=== PATIENT | male | born 1980 | race African-American/Black ===

== ENCOUNTER 2019-03-05 19:50 | Emergency (ER) | payer OTHER, SELFPAY ==
[2019-03-05 19:54] VITALS: BP 148/91; PULSE 84; RESP 18; TEMP 37.9; O2SAT 97; BMI 34.7
[2019-03-05 20:15] LABS: Bacteria Urine None Seen
[2019-03-05 20:22] LABS: Appearance Urine UA CLEAR; Bilirubin Urine UA NEGATIVE (NEGATIVE); Color Urine UA YELLOW; Glucose Urine UA NEGATIVE (Negative); Ketones Urine UA NEGATIVE (NEGATIVE); Leukocyte Esterase Urine UA 1+ (NEGATIVE); Nitrite Urine UA NEGATIVE (Negative); Occult Blood Urine UA 3+ (Negative); Protein Urine UA TRACE (Negative); Urobilinogen Urine UA 0.2 E.U./dL (0.2); pH Urine UA 6.5 (4.5-8.0)
[2019-03-05 20:25] LABS: Culture Indicated Urine Specimen Cultured; RBC Urine 30-100/HPF (0-5/HPF); WBC Urine 5-10/HPF (0-5/HPF)
[2019-03-05 20:53] LABS: Add Manual Diff / Slide Review NO; Basophils Absolute Auto 100 /uL (0-100); Basophils Percent Auto 0.4 % (0-2); Eosinophils Absolute Auto 0 /uL (0-450); Eosinophils Percent Auto 0.2 % (2-4); Hematocrit 48.9 % (41-53); Hemoglobin 16.1 g/dL (13.5-17.5); Lymphocytes Absolute Auto 3000 /uL (1100-4500); Lymphocytes Percent Auto 15.5 % (25-40); Mean Corpuscular HGB Conc 32.9 % (30-36); Mean Corpuscular Hemoglobin 29.5 PG (26-34); Mean Corpuscular Volume 89.8 fL (80-100); Monocytes Absolute Auto 1300 /uL (0-900); Monocytes Percent Auto 6.8 % (3-14); Neutrophils Absolute Auto 14800 /uL (1500-7000); Neutrophils Percent Auto 77.1 % (50-75); Platelet Count 226 X10^3/uL (150-400); Red Blood Cell Count 5.44 X10^6/uL (4.5-5.9); Red Cell Distribution Width 14.2 % (11.6-14.8); White Blood Cell Count 19.2 X10^3/uL (4.5-11.0)
--- NOTE | 2019-03-05 20:56 | PC.NURSE ---
Pt reports left flank pain with pain at the tip of his penis when urinating. He states he has urgency and frequency problems. Denies needs at this time. Urine sample obtained, iv placed, labs pending.
[2019-03-05 21:01] LABS: Alanine Aminotransferase 29 IU/L (21-72); Albumin 4.8 g/dL (3.5-5.0); Albumin Globulin Ratio 1.3 (1.0-2.8); Alkaline Phosphatase 54 U/L (38-126); Aspartate Aminotransferase 23 IU/L (17-59); Bilirubin Total 0.7 mg/dL (0.2-1.3); Blood Urea Nitrogen 11 mg/dL (9-20); Calcium 9.8 mg/dL (8.4-10.2); Carbon Dioxide 27 mmol/L (22-32); Chloride 99 mmol/L (98-107); Estimated Glomerular Filt Rate > 60.0 mL/min (>60); Globulin 3.7 g/dL (1.7-4.1); Glucose 96 mg/dL (70-100); HEMOLYSIS < 15 (0-50); Potassium 3.5 mmol/L (3.4-5.1); Sodium 137 mmol/L (137-145); Total Protein 8.5 g/dL (6.3-8.2)
[2019-03-05] MEDS: SODIUM CHLORIDE 0.9% 1,000 ML 1000 ML IV (21:03)
[2019-03-05 21:21] LABS: Procalcitonin < 0.05 ng/mL (<0.5)
[2019-03-05] MEDS: levoFLOXacin 750 MG/150 ML PIGGYBACK 100 MG IV (21:49)
[2019-03-05 22:08] VITALS: BP 144/80; PULSE 84; RESP 18; O2SAT 96
--- NOTE | 2019-03-05 22:33 | ED.MALEGU ---
HPI - Male Genitourinary <LILY Dejesus - Last Filed: 03/05/19 22:51> General Chief complaint: Urogenital-Male Stated complaint: THINKS KIDNEY INFECTION Time Seen by Provider: 03/05/19 20:40 Source: patient and family Mode of arrival: ambulatory Limitations: no limitations History of Present Illness HPI Narrative: The patient is a 38-year-old male nonsmoker who denies medical history presents with a chief complaint of flank pain dysuria urgency and frequency. He started noting dysuria 3 days ago, which progressed to right-sided flank pain and started developing fevers today. He denies any possibility of sexually transmitted infection. He denies any nausea vomiting or diarrhea. He is concerned about a urinary tract infection. Related Data Home Medications Medication Instructions Recorded Confirmed Naproxen Sodium (Naprosyn) 0 mg PO * DOSE/FREQUENCY #0 04/08/08 [meloxicam] #0 03/16/13 prednisone DAILY #0 03/16/13 Previous Rx's Medication Instructions Recorded levofloxacin [Levaquin] 750 mg PO DAILY #6 tab 03/05/19 Allergies Allergy/AdvReac Type Severity Reaction Status Date / Time No Known Drug Allergies Allergy Verified 03/05/19 19:54 Review of Systems <LILY Dejesus - Last Filed: 03/05/19 22:51> Review of Systems GENERAL: Denies chills, fatigue, malaise, fever, sweats. HEENT: Denies sinus pain, ear pain, sore throat, difficulty swallowing, dizziness. RESPIRATORY: Denies dyspnea, cough, wheezing, hemoptysis, sputum. CARDIOVASCULAR: Denies chest pain, palpitations, orthopnea, edema, GASTROINTESTINAL: Denies nausea, vomiting, abdominal pain, diarrhea, constipation, melena. : See HPI MUSCULOSKELETAL: denies weakness, joint pain, or bony pain SKIN: Denies rash, skin lesions, or other NEUROLOGIC: Denies weakness, headache, numbness, change in speech, confusion, seizures, incoordination. PSYCHIATRIC: No concerning psychosocial issues. 12 point review of systems is negative except for those stated above PFSH <LILY Dejesus - Last Filed: 03/05/19 22:51> Social History Smoking Status: Never smoker Social History Smoking Status: Never smoker Exam <LILY Dejesus - Last Filed: 03/05/19 22:51> Narrative Exam Narrative: GENERAL: This is a well-nourished, well-developed patient, appears uncomfortable HEAD: Atraumatic. Normocephalic. No temporal or scalp tenderness. EYES: Pupils equal round and reactive. Extraocular motions intact. No scleral icterus. No injection or drainage. ENT: Nose without bleeding, purulent drainage or septal hematoma. Throat without erythema, tonsillar hypertrophy or exudate. Uvula midline. Airway patent. NECK: Trachea midline. No JVD or lymphadenopathy. Supple, nontender, no meningeal signs. CARDIOVASCULAR: Regular rate and rhythm without murmurs, gallops, or rubs. RESPIRATORY: Clear to auscultation. Breath sounds equal bilaterally. No wheezes, rales, or rhonchi. GASTROINTESTINAL: Abdomen soft, non-tender, nondistended. No hepato-splenomegaly, or palpable masses. No guarding. EXTREMITIES: No clubbing, cyanosis, or edema. No joint tenderness, effusion, or edema noted. BACK: Nontender without deformity or crepitance. CVA tenderness right side NEURO: AOx3. SKIN: No rash or erythema. Initial Vital Signs Initial Vital Signs: Vital Signs Temperature 100.2 F H 03/05/19 19:54 Pulse Rate 84 03/05/19 19:54 Respiratory Rate 18 03/05/19 19:54 Blood Pressure 148/91 H 03/05/19 19:54 Pulse Oximetry 97 03/05/19 19:54 <Gary Hernandez DO - Last Filed: 03/06/19 01:10> Initial Vital Signs Initial Vital Signs: Vital Signs Temperature 100.2 F H 03/05/19 19:54 Pulse Rate 84 03/05/19 19:54 Respiratory Rate 18 03/05/19 19:54 Blood Pressure 148/91 H 03/05/19 19:54 Pulse Oximetry 97 03/05/19 19:54 Course <LILY Dejesus - Last Filed: 03/05/19 22:51> Orders Ordered: ED Orders 03/05/19 20:03 Urinalysis and Microscopic Stat Urine Culture Stat 03/05/19 20:40 Complete Blood Count AUTO DIFF Stat Comprehensive Metabolic Panel Stat Procalcitonin Stat Discontinued Medications Sodium Chloride (Normal Saline 0.9%) 1,000 mls @ 1,000 mls/hr IV BOLUS ONE Stop: 03/05/19 21:37 Last Infusion: 03/05/19 22:11 Dose: 0 mls/hr Admin: 03/05/19 21:03 Dose: 1,000 mls/hr Levofloxacin (Levaquin) 750 mg in 150 mls @ 100 mls/hr IV NOW ONE Stop: 03/05/19 23:11 Last Infusion: 03/05/19 23:35 Dose: 0 mls/hr Admin: 03/05/19 21:49 Dose: 100 mls/hr Vital Signs - 8 hr 03/05/19 19:54 03/05/19 22:08 03/05/19 23:21 Temperature 100.2 F H Pulse Rate 84 84 88 Respiratory Rate 18 18 18 Blood Pressure 148/91 H Blood Pressure [Left Arm] 144/80 H 145/92 H Pulse Oximetry 97 96 98 03/05/19 23:35 Temperature Pulse Rate 85 Respiratory Rate Blood Pressure 160/92 H Blood Pressure [Left Arm] Pulse Oximetry 97 <Gary Hernandez DO - Last Filed: 03/06/19 01:10> Orders Ordered: ED Orders 03/05/19 20:03 Urinalysis and Microscopic Stat Urine Culture Stat 03/05/19 20:40 Complete Blood Count AUTO DIFF Stat Comprehensive Metabolic Panel Stat Procalcitonin Stat Discontinued Medications Sodium Chloride (Normal Saline 0.9%) 1,000 mls @ 1,000 mls/hr IV BOLUS ONE Stop: 03/05/19 21:37 Last Infusion: 03/05/19 22:11 Dose: 0 mls/hr Admin: 03/05/19 21:03 Dose: 1,000 mls/hr Levofloxacin (Levaquin) 750 mg in 150 mls @ 100 mls/hr IV NOW ONE Stop: 03/05/19 23:11 Last Infusion: 03/05/19 23:35 Dose: 0 mls/hr Admin: 03/05/19 21:49 Dose: 100 mls/hr Vital Signs - 8 hr 03/05/19 19:54 03/05/19 22:08 03/05/19 23:21 Temperature 100.2 F H Pulse Rate 84 84 88 Respiratory Rate 18 18 18 Blood Pressure 148/91 H Blood Pressure [Left Arm] 144/80 H 145/92 H Pulse Oximetry 97 96 98 03/05/19 23:35 Temperature Pulse Rate 85 Respiratory Rate Blood Pressure 160/92 H Blood Pressure [Left Arm] Pulse Oximetry 97 MDM - Male Genitourinary <Radha MejiasBECCA neumannP- - Last Filed: 03/05/19 22:51> Lab Data Result diagrams: 03/05/19 20:40 03/05/19 20:40 Lab Results 03/05/19 03/05/19 03/05/19 Range/Units 20:03 20:40 20:40 WBC 19.2 H (4.5-11.0) X10^3/uL RBC 5.44 (4.5-5.9) X10^6/uL Hgb 16.1 (13.5-17.5) g/dL Hct 48.9 (41-53) % MCV 89.8 (80-100) fL MCH 29.5 (26-34) PG MCHC 32.9 (30-36) % RDW 14.2 (11.6-14.8) % Plt Count 226 (150-400) X10^3/uL Neut % (Auto) 77.1 H (50-75) % Lymph % (Auto) 15.5 L (25-40) % [place] % (Auto) 6.8 (3-14) % Eos % (Auto) 0.2 L (2-4) % Baso % (Auto) 0.4 (0-2) % Neut # (Auto) 01795 H (9877-9764) /uL Lymph # (Auto) 3000 (6456-1138) /uL [place] # (Auto) 1300 H (0-900) /uL Eos # (Auto) 0 (0-450) /uL Baso # (Auto) 100 (0-100) /uL Sodium (137-145) mmol/L Potassium (3.4-5.1) mmol/L Chloride (98-107) mmol/L Carbon Dioxide (22-32) mmol/L BUN (9-20) mg/dL Creatinine (0.66-1.25) mg/dL Estimated GFR (>60) mL/min BUN/Creatinine Ratio (6-22) Glucose (70-100) mg/dL Calcium (8.4-10.2) mg/dL Total Bilirubin (0.2-1.3) mg/dL AST (17-59) IU/L ALT (21-72) IU/L Alkaline Phosphatase (38-126) U/L Total Protein (6.3-8.2) g/dL Albumin (3.5-5.0) g/dL Globulin (1.7-4.1) g/dL Albumin/Globulin Ratio (1.0-2.8) Procalcitonin < 0.05 (<0.5) ng/mL Urine Color Yellow Urine Appearance Clear Urine pH 6.5 (4.5-8.0) Ur Specific [place] 1.010 (1.000-1.035) Urine Protein Trace H (Negative) Urine Glucose (UA) Negative (Negative) g/dL Urine Ketones Negative (NEGATIVE) Urine Occult Blood 3+ H (Negative) Urine Nitrate Negative (Negative) Urine Bilirubin Negative (NEGATIVE) Urine Urobilinogen 0.2 (0.2) E.U./dL Ur Leukocyte Esterase 1+ H (NEGATIVE) Urine RBC 30-100/hpf H (0-5/HPF) Urine WBC 5-10/hpf H (0-5/HPF) Urine Bacteria None seen (None) Ur Culture Indicated? Specimen cultured 03/05/19 Range/Units 20:40 WBC (4.5-11.0) X10^3/uL RBC (4.5-5.9) X10^6/uL Hgb (13.5-17.5) g/dL Hct (41-53) % MCV (80-100) fL MCH (26-34) PG MCHC (30-36) % RDW (11.6-14.8) % Plt Count (150-400) X10^3/uL Neut % (Auto) (50-75) % Lymph % (Auto) (25-40) % [place] % (Auto) (3-14) % Eos % (Auto) (2-4) % Baso % (Auto) (0-2) % Neut # (Auto) (6675-3277) /uL Lymph # (Auto) (6336-1419) /uL [place] # (Auto) (0-900) /uL Eos # (Auto) (0-450) /uL Baso # (Auto) (0-100) /uL Sodium 137 (137-145) mmol/L Potassium 3.5 (3.4-5.1) mmol/L Chloride 99 (98-107) mmol/L Carbon Dioxide 27 (22-32) mmol/L BUN 11 (9-20) mg/dL Creatinine 1.10 (0.66-1.25) mg/dL Estimated GFR > 60.0 (>60) mL/min BUN/Creatinine Ratio 10.0 (6-22) Glucose 96 (70-100) mg/dL Calcium 9.8 (8.4-10.2) mg/dL Total Bilirubin 0.7 (0.2-1.3) mg/dL AST 23 (17-59) IU/L ALT 29 (21-72) IU/L Alkaline Phosphatase 54 (38-126) U/L Total Protein 8.5 H (6.3-8.2) g/dL Albumin 4.8 (3.5-5.0) g/dL Globulin 3.7 (1.7-4.1) g/dL Albumin/Globulin Ratio 1.3 (1.0-2.8) Procalcitonin (<0.5) ng/mL Urine Color Urine Appearance Urine pH (4.5-8.0) Ur Specific [place] (1.000-1.035) Urine Protein (Negative) Urine Glucose (UA) (Negative) g/dL Urine Ketones (NEGATIVE) Urine Occult Blood (Negative) Urine Nitrate (Negative) Urine Bilirubin (NEGATIVE) Urine Urobilinogen (0.2) E.U./dL Ur Leukocyte Esterase (NEGATIVE) Urine RBC (0-5/HPF) Urine WBC (0-5/HPF) Urine Bacteria (None) Ur Culture Indicated? Urine Dip Bedside Urine Bilirubin - Negative Bedside Urine Ketone - Negative Urine Specific [place] 1.015 Bedside Urine Occult Blood +++ Bedside Urine pH 6.0 Bedside Urine Protein + 30 Bedside Urine Urobilinogen +/- 1mg Bedside Urine Nitrite + Positive Bedside Urine Leukocytes ++ 125 Esterase MDM Narrative Medical decision making narrative: The patient is a 38-year-old male who presents with dysuria, flank pain and fever. His pain is continuous , his white blood cell count is elevated and his urine is nitrite positive. he states his pain is a consistent low pain with no associated nausea or vomiting. he is not presenting like a kidney stone, though we discussed imaging and elected to defer at this point time. Given his flank pain, elevated white blood cell count low grade temperature, and treat him like pyelonephritis. His temperature did decrease after single dose of Tylenol. We did elect to give him IV Levaquin in the emergency department prior to discharge. I discussed at length the risk of tendon issues. And that he would be discharged on p.o. antibiotics. Encouraged him to follow up with his primary care provider. Discussed return precautions of fevers, worsening, vomiting and lack of improvement. Patient had no questions or concerns upon discharge. <Gary Hernandez, - Last Filed: 03/06/19 01:10> Lab Data Lab Results 03/05/19 03/05/19 03/05/19 Range/Units 20:03 20:40 20:40 WBC 19.2 H (4.5-11.0) X10^3/uL RBC 5.44 (4.5-5.9) X10^6/uL Hgb 16.1 (13.5-17.5) g/dL Hct 48.9 (41-53) % MCV 89.8 (80-100) fL MCH 29.5 (26-34) PG MCHC 32.9 (30-36) % RDW 14.2 (11.6-14.8) % Plt Count 226 (150-400) X10^3/uL Neut % (Auto) 77.1 H (50-75) % Lymph % (Auto) 15.5 L (25-40) % [place] % (Auto) 6.8 (3-14) % Eos % (Auto) 0.2 L (2-4) % Baso % (Auto) 0.4 (0-2) % Neut # (Auto) 41573 H (4080-6811) /uL Lymph # (Auto) 3000 (2806-0369) /uL [place] # (Auto) 1300 H (0-900) /uL Eos # (Auto) 0 (0-450) /uL Baso # (Auto) 100 (0-100) /uL Sodium (137-145) mmol/L Potassium (3.4-5.1) mmol/L Chloride (98-107) mmol/L Carbon Dioxide (22-32) mmol/L BUN (9-20) mg/dL Creatinine (0.66-1.25) mg/dL Estimated GFR (>60) mL/min BUN/Creatinine Ratio (6-22) Glucose (70-100) mg/dL Calcium (8.4-10.2) mg/dL Total Bilirubin (0.2-1.3) mg/dL AST (17-59) IU/L ALT (21-72) IU/L Alkaline Phosphatase (38-126) U/L Total Protein (6.3-8.2) g/dL Albumin (3.5-5.0) g/dL Globulin (1.7-4.1) g/dL Albumin/Globulin Ratio (1.0-2.8) Procalcitonin < 0.05 (<0.5) ng/mL Urine Color Yellow Urine Appearance Clear Urine pH 6.5 (4.5-8.0) Ur Specific [place] 1.010 (1.000-1.035) Urine Protein Trace H (Negative) Urine Glucose (UA) Negative (Negative) g/dL Urine Ketones Negative (NEGATIVE) Urine Occult Blood 3+ H (Negative) Urine Nitrate Negative (Negative) Urine Bilirubin Negative (NEGATIVE) Urine Urobilinogen 0.2 (0.2) E.U./dL Ur Leukocyte Esterase 1+ H (NEGATIVE) Urine RBC 30-100/hpf H (0-5/HPF) Urine WBC 5-10/hpf H (0-5/HPF) Urine Bacteria None seen (None) Ur Culture Indicated? Specimen cultured 03/05/19 Range/Units 20:40 WBC (4.5-11.0) X10^3/uL RBC (4.5-5.9) X10^6/uL Hgb (13.5-17.5) g/dL Hct (41-53) % MCV (80-100) fL MCH (26-34) PG MCHC (30-36) % RDW (11.6-14.8) % Plt Count (150-400) X10^3/uL Neut % (Auto) (50-75) % Lymph % (Auto) (25-40) % [place] % (Auto) (3-14) % Eos % (Auto) (2-4) % Baso % (Auto) (0-2) % Neut # (Auto) (5313-6414) /uL Lymph # (Auto) (8259-6453) /uL [place] # (Auto) (0-900) /uL Eos # (Auto) (0-450) /uL Baso # (Auto) (0-100) /uL Sodium 137 (137-145) mmol/L Potassium 3.5 (3.4-5.1) mmol/L Chloride 99 (98-107) mmol/L Carbon Dioxide 27 (22-32) mmol/L BUN 11 (9-20) mg/dL Creatinine 1.10 (0.66-1.25) mg/dL Estimated GFR > 60.0 (>60) mL/min BUN/Creatinine Ratio 10.0 (6-22) Glucose 96 (70-100) mg/dL Calcium 9.8 (8.4-10.2) mg/dL Total Bilirubin 0.7 (0.2-1.3) mg/dL AST 23 (17-59) IU/L ALT 29 (21-72) IU/L Alkaline Phosphatase 54 (38-126) U/L Total Protein 8.5 H (6.3-8.2) g/dL Albumin 4.8 (3.5-5.0) g/dL Globulin 3.7 (1.7-4.1) g/dL Albumin/Globulin Ratio 1.3 (1.0-2.8) Procalcitonin (<0.5) ng/mL Urine Color Urine Appearance Urine pH (4.5-8.0) Ur Specific [place] (1.000-1.035) Urine Protein (Negative) Urine Glucose (UA) (Negative) g/dL Urine Ketones (NEGATIVE) Urine Occult Blood (Negative) Urine Nitrate (Negative) Urine Bilirubin (NEGATIVE) Urine Urobilinogen (0.2) E.U./dL Ur Leukocyte Esterase (NEGATIVE) Urine RBC (0-5/HPF) Urine WBC (0-5/HPF) Urine Bacteria (None) Ur Culture Indicated? Urine Dip Bedside Urine Bilirubin - Negative Bedside Urine Ketone - Negative Urine Specific [place] 1.015 Bedside Urine Occult Blood +++ Bedside Urine pH 6.0 Bedside Urine Protein + 30 Bedside Urine Urobilinogen +/- 1mg Bedside Urine Nitrite + Positive Bedside Urine Leukocytes ++ 125 Esterase Discharge Plan Departure Patient Disposition: Home Clinical Impression: Pyelonephritis Discharge Date/Time: 03/05/19 23:36 Interventions: ED Discharge Assessment Last Done: 03/05/19 23:35 Instructions: DI for Kidney Infection Activity Restrictions/Additional Instructions: I am starting on antibiotics for kidney infection. Please monitor for fever, vomiting and worsening. Please be evaluated if any of these occur. Come back to the emergency department for any acute concerns. Please follow up with primary care provider. We are sending off a urine culture to make sure that this antibiotic works for the infection that you have. Prescriptions: New levofloxacin [Levaquin] 750 mg tablet 750 mg PO DAILY Qty: 6 RF: 0 No Action Naproxen Sodium (Naprosyn) PO * DOSE/FREQUENCY Qty: 0 RF: 0 prednisone 10 MG tablet DAILY Qty: 0 RF: 0 [meloxicam] Qty: 0 RF: 0 Referrals: Isac Mendez MD [Primary Care Provider] - <Gary Hernandez DO - Last Filed: 03/06/19 01:10> Cosign ED Attending Ashley Attestation: I was available for consultation during this patient's emergency department encounter
[2019-03-05 23:21] VITALS: BP 145/92; PULSE 88; RESP 18; O2SAT 98
[2019-03-05 23:35] VITALS: BP 160/92; PULSE 85; O2SAT 97
== END 2019-03-05 23:36 | disposition home or self-care (01) ==
PROVIDERS: Emergency Provider Nurse Practitioner Family; Family Provider Family Medicine; PCP Family Medicine
DX: N12 Tubulo-interstitial nephritis, not specified as acute or chronic (principal)
CPT/HCPCS: 36591; 80053; 81001; 81003; 84145; 85025; 87077; 87086; 87186; 96361; 96365; 96366; 99283; 99284; J1956

== ENCOUNTER → 2025-01-12 08:57 | Outpatient (CLI) | payer OTHER, SELFPAY ==
--- NOTE | 2025-01-12 08:59 | DI.MRI.S_ITS ---
PROCEDURE: MR HEAD/BRAIN WO/W CON INDICATIONS: ANOSMIA TECHNIQUE: Noncontrast axial T1 spin echo, axial T2 fast spin echo, sagittal and axial FLAIR, coronal T2 fast spin echo, axial gradient echo, axial diffusion and ADC through the brain. After the administration of contrast, axial and coronal and sagittal 3D VIBE or T1 spin echo with fat saturation through the brain. COMPARISON: None. FINDINGS: CSF Spaces: Basal cisterns are patent. No extra-axial fluid collections. Ventricles are normal in size and shape. Brain: No intracranial masses or hemorrhage. Ramos/white matter interface is normal. Brainstem appears normal. Diffusion-weighted sequence is unremarkable without evidence of acute infarct. Normal intravascular flow voids are present. Skull and face: Calvarial marrow is normal in signal. Orbits appear normal. Unilateral left intra-ocular lens replacement. Sinuses: Sinuses and mastoids appear clear. IMPRESSION: Unremarkable MRI of the brain with and without contrast Approved by: Gato Dior M.D. on 01/12/2025 at 11:49
== END ==
PROVIDERS: Family Provider Family Medicine; PCP Family Medicine; Referring Provider Nurse Practitioner Primary Care; Visit Provider Nurse Practitioner Primary Care
DX: R43.0 Anosmia (principal)
CPT/HCPCS: 70553; A9579